=== PATIENT | male | born 1985 | race Caucasian/White ===

== ENCOUNTER 2021-02-10 01:49 | Emergency (ER) | payer BC ==
--- NOTE | 2021-02-10 01:52 | EDM.PDOC ---
ED HPI GENERAL MEDICAL PROBLEM - General Stated Complaint: CONCERNS IN GENITAL AREA Time Seen by Provider: 02/10/21 01:51 Source of Information: Reports: Patient History Limitations: Reports: No Limitations - History of Present Illness INITIAL COMMENTS - FREE TEXT/NARRATIVE: 35-year-old male no relevant past medical history presents for painful bumps on groin and penis. Noted for about the last 4 days. Patient was initially attributing to razor burn but notes that the pain is worsened. He notes mild dysuria but denies hematuria, penile discharge. genital area Pain Score (Numeric/FACES): 7 - Related Data Allergies Allergy/AdvReac Type Severity Reaction Status Date / Time No Known Allergies Allergy Verified 02/10/21 02:01 Home Meds: Home Meds Acyclovir 400 mg PO TID #21 tablet 02/10/21 [Rx] ED ROS GENERAL - Review of Systems Review Of Systems: Comprehensive ROS is negative, except as noted in HPI. ED EXAM, GENERAL - Physical Exam Exam: See Below Exam Limited By: No Limitations General Appearance: Alert, WD/WN, No Apparent Distress Throat/Mouth: Normal Voice, No Airway Compromise Head: Atraumatic, Normocephalic Neck: Normal Inspection Respiratory/Chest: No Respiratory Distress, No Accessory Muscle Use Cardiovascular: Normal Peripheral Pulses, Regular Rate, Rhythm GI/Abdominal: Soft, Non-Tender (Male) Exam: Other (crusted over lesion on shaft of penis, erytematous bumps on suprapubic pelvis consistent with mild folliculitis) Extremities: Normal Inspection Neurological: Alert, Normal Cognition Psychiatric: Normal Affect, Normal Mood Skin Exam: Warm, Dry, Intact, Normal Color Course - Vital Signs Last Recorded V/S: Last Vital Signs Temp 98.0 F 02/10/21 02:02 Pulse 105 H 02/10/21 02:02 Resp 20 02/10/21 02:02 BP 124/82 02/10/21 02:02 Pulse Ox 99 02/10/21 02:02 - Orders/Labs/Meds Orders: Active Orders 24 hr Category Date Time Status CHLAMYDIA AND GONORRHEA BY TMA Stat Lab 02/10/21 02:10 Received HSV 1/2 PCR [REF] Stat Lab 02/10/21 02:20 Received Labs: Laboratory Tests 02/10/21 Range/Units 02:10 Urine Color YELLOW Urine Appearance CLEAR Urine pH 5.5 (5.0-8.0) Ur Specific [place] >= 1.030 (1.001-1.035) Urine Protein NEGATIVE (NEGATIVE) mg/dL Urine Glucose (UA) NEGATIVE (NEGATIVE) mg/dL Urine Ketones NEGATIVE (NEGATIVE) mg/dL Urine Occult Blood NEGATIVE (NEGATIVE) Urine Nitrite NEGATIVE (NEGATIVE) Urine Bilirubin NEGATIVE (NEGATIVE) Urine Urobilinogen 0.2 (<2.0) EU/dL Ur Leukocyte Esterase NEGATIVE (NEGATIVE) Meds: Medications Discontinued Medications Generic Name Dose Route Start Last Admin Trade Name Shyla PRN Reason Stop Dose Admin Azithromycin 1,000 mg 02/10/21 02:18 02/10/21 02:28 Azithromycin 250 Mg Tab PO 02/10/21 02:19 1,000 mg STAT STA Administration Ceftriaxone Sodium 500 mg/ 1 mls @ 1 mls/sec 02/10/21 02:18 02/10/21 02:28 Lidocaine HCl IM 02/10/21 02:19 1 mls/sec ONETIME ONE Administration - Re-Assessments/Exams Free Text/Narrative Re-Assessment/Exam: 02/10/21 02:33 Will test for gonorrhea chlamydia, herpes swab sent, urinalysis sent. Will treat for gonorrhea chlamydia. Will discharge with treatment for herpes although I am not completely convinced based on physical exam. Could be a crusted over herpes lesion versus folliculitis. Departure - Departure Time of Disposition: 02:34 Disposition: Home, Self-Care 01 Condition: Good Clinical Impression: STI (sexually transmitted infection) - Discharge Information Prescriptions: Acyclovir 400 mg PO TID #21 tablet Instructions: Genital Herpes Additional Instructions: The following information is given to patients seen in the emergency department who are being discharged to home. This information is to outline your options for follow-up care. We provide all patients seen in our emergency department with a follow-up referral. The need for follow-up, as well as the timing and circumstances, are variable depending upon the specifics of your emergency department visit. If you don't have a primary care physician on staff, we will provide you with a referral. We always advise you to contact your personal physician following an emergency department visit to inform them of the circumstance of the visit and for follow-up with them and/or the need for any referrals to a consulting specialist. The emergency department will also refer you to a specialist when appropriate. This referral assures that you have the opportunity for follow-up care with a specialist. All of these measure are taken in an effort to provide you with optimal care, which includes your follow-up. Under all circumstances we always encourage you to contact your private physician who remains a resource for coordinating your care. When calling for follow-up care, please make the office aware that this follow-up is from your recent emergency room visit. If for any reason you are refused follow-up, please contact the [facility] at and asked to speak to the emergency department charge nurse. Please follow up with your primary care physician. If you do not have a primary care physician, see below: [facility] [address] [place] [id number] [facility] [address] [place] [address] [facility] [address] [place] [id number] Sepsis Event Note (ED) - Focused Exam Vital Signs: Vital Signs Temp Pulse Resp BP Pulse Ox 02/10/21 02:02 98.0 F 105 H 20 124/82 99 - My Orders Last 24 Hours: My Active Orders 02/10/21 02:10 CHLAMYDIA AND GONORRHEA BY TMA Stat 02/10/21 02:20 HSV 1/2 PCR [REF] Stat - Assessment/Plan Last 24 Hours: My Active Orders 02/10/21 02:10 CHLAMYDIA AND GONORRHEA BY TMA Stat 02/10/21 02:20 HSV 1/2 PCR [REF] Stat
[2021-02-10] MEDS ORDERED: cefTRIAXone 500 MG in Lidocaine 1% 1 ML IM ONE (02:18)
[2021-02-10] MEDS ORDERED: Azithromycin 250 MG Tab PO STA (02:18)
[2021-02-11 12:07] LABS: C.TRACHOMATIS BY TMA Negative (Negative); N.GONORRHOEAE BY TMA Negative (Negative)
== END 2021-02-10 02:57 | disposition home or self-care (01) ==
LOC: MW.ED 01:49
DX: A64 Unspecified sexually transmitted disease (principal)
CPT/HCPCS: 81003; 87491; 87529; 87591; 96372; 99283; A9270; J0696; 99282